=== PATIENT | female | born 1935 | race Caucasian/White ===

== ENCOUNTER → 2019-07-15 | Outpatient (CLI) | payer OTHER | LOC: SJCVCIMAG 12:35 | DX: I87.2 Venous insufficiency (chronic) (peripheral) (principal); I77.1 Stricture of artery; M79.604 Pain in right leg; M79.605 Pain in left leg ==

== ENCOUNTER → 2019-08-12 | Outpatient (CLI) | payer OTHER | LOC: SJCVC 14:12 | DX: M79.604 Pain in right leg (principal); M79.605 Pain in left leg; I10 Essential (primary) hypertension; E11.9 Type 2 diabetes mellitus without complications; E78.5 Hyperlipidemia, unspecified; Z79.4 Long term (current) use of insulin ==